=== PATIENT | female | born 1970 | race Caucasian/White ===

== ENCOUNTER 2022-02-26 16:03 | Emergency (ER) | payer BC, OTHER ==
[~2022-02-26] VITALS: Ht 170.2 cm; Wt 81.8 kg
[~2022-02-26 16:03] MED LIST: CEPH-37
[2022-02-26] MEDS ORDERED: HYDROmorphone HCL 2 MG/ML VL/or syr IV ONE (17:45)
[2022-02-26] MEDS ORDERED: SODIUM CHLORIDE 0.9% 1,000 ML IV ONE (17:45)
[2022-02-26] MEDS ORDERED: ONDANSETRON HCL 4 MG/2 ML VIAL IV ONE ×2 (17:45→18:30)
[2022-02-26] MEDS ORDERED: ONDANSETRON HCL 4 MG/2 ML VIAL ONE (18:29)
[2022-02-26] MEDS ORDERED: PROPOFOL 10 MG/ML 20 ML IV ONE (19:15)
[2022-02-26] MEDS ORDERED: KETAMINE 50mg/ML 10ml Vial (500mg/10ml) IM ONE (19:15)
[2022-02-26] MEDS ORDERED: NAP500T PO (21:50)
[2022-02-26 22:00] VITALS: BP 119/80
== END 2022-02-26 22:50 | disposition home or self-care (01) ==
LOC: EDBD 16:03 → ER 16:07
DX: S82.852A Displaced trimalleolar fracture of left lower leg, initial encounter for closed fracture (principal); W19.XXXA Unspecified fall, initial encounter; Y93.89 Activity, other specified; Y92.89 Other specified places as the place of occurrence of the external cause; Y99.8 Other external cause status
CPT/HCPCS: 27768; 73590; 73600; 96361; 96374; 96375; 96376; 99285; J1170; J2405; J7030